=== PATIENT | male | born 1970 | race Caucasian/White ===

== ENCOUNTER → 2016-06-27 | Day surgery (SDC) | payer BC, SELFPAY ==
[~2016-06-27] VITALS: Ht 175.3 cm; Wt 107.0 kg
[~2016-06-27] MED LIST: ACID CONTROL150 MG PO; FISH OIL300 MG PO; MELOXICAM15 MG PO; PERCOCET 7.5-31 EACH PO; VIT B12 PO
[2016-06-27 08:59] LABS: HEMOGLOBIN 15.6 gm/dl (14.0-17.5); RED BLOOD COUNT 5.25 M/UL (4.20-5.50); WHITE BLOOD COUNT 7.2 K/UL (4.5-11.0)
[2016-06-27 09:12] LABS: BUN/CREATININE RATIO 19 (0-10)
== END | disposition home or self-care (01) ==
LOC: OR 08:06
PROVIDERS: Orthopaedic Surgery
PROC: 0SBC4ZZ Excision of Right Knee Joint, Percutaneous Endoscopic Approach (ICD-10-PCS; principal; 2016-06-27 12:30)
DX: S83.211A Bucket-handle tear of medial meniscus, current injury, right knee, initial encounter (principal); K21.9 Gastro-esophageal reflux disease without esophagitis; Z79.899 Other long term (current) drug therapy; Z88.6 Allergy status to analgesic agent; Z83.3 Family history of diabetes mellitus; Z82.49 Family history of ischemic heart disease and other diseases of the circulatory system; Z83.49 Family history of other endocrine, nutritional and metabolic diseases; X58.XXXA Exposure to other specified factors, initial encounter
CPT/HCPCS: 36415; 80048; 85027; J0171; J0360; J0690; J1200; J1885; J2250; J2405; J2795; J3010; J7120